=== PATIENT | male | born 1965 | race Caucasian/White ===

== ENCOUNTER 2017-01-17 11:09 | Inpatient (IN) | payer BC ==
[2017-01-17] VITALS (9 sets, daily range): BP systolic 107–128; BP diastolic 62–84; PULSE 74–84; RESP 16–18; TEMP 97.2–99; O2SAT 94–99
[~2017-01-17] VITALS: Ht 149.9 cm; Wt 74.8 kg
--- NOTE | 2017-01-17 11:09 | NUR ---
Pt report received from STAR Hamilton. [facility]. Pt opens eyes, mumbles, bilat icterus to slecra, jaundice to skin, abdomen distended and firm to touch. Scratch ennis generalized to body, no open wounds noted.
--- NOTE | 2017-01-17 11:09 | NUR ---
Placed in room 08. Placed on cardiac technician, blood pressure machine and pulse oximeter. To gown for exam. Side rails up. Report given to STAR Gibson.
--- NOTE | 2017-01-17 11:11 | NUR ---
Dr. Roman at bedside for evaluation
--- NOTE | 2017-01-17 11:25 | NUR ---
Lab at bedside, blood collected.
--- NOTE | 2017-01-17 11:35 | NUR ---
Portable CXR complete.
--- NOTE | 2017-01-17 11:45 | NUR ---
In/Out urinary catheter inserted and removed. Approx 30 mL tea colored urine to collection bag. Specimen collected and sent to lab.
[2017-01-17 11:57] LABS: BASOPHILS # (AUTO) 0.1 K/uL (0.0-0.2); BASOPHILS % (AUTO) 0.4 % (0.0-2.0); EOSINOPHILS # (AUTO) 0.1 K/uL (0.0-0.4); EOSINOPHILS % (AUTO) 0.5 % (0.0-4.0); HEMATOCRIT 34.2 % (36-54); HEMOGLOBIN 11.6 g/dL (14.0-18.0); LYMPHOCYTES # (AUTO) 1.5 K/uL (1.0-5.5); LYMPHOCYTES % (AUTO) 6.9 % (20.5-51.5); MEAN CORPUSCULAR HEMOGLOBIN 35 pg (27-31); MEAN CORPUSCULAR HGB CONC 34 % (32-36); MEAN CORPUSCULAR VOLUME 105 fL (79.0-98.0); MONOCYTES # (AUTO) 1.7 K/uL (0.0-1.0); MONOCYTES % (AUTO) 7.7 % (1.7-9.3); NEUTROPHILS # (AUTO) 18.7 K/uL (1.8-7.7); NEUTROPHILS % (AUTO) 84.5 % (40.0-70.0); PLATELET COUNT (AUTO) 228 K/uL (130-430); RED BLOOD CELL COUNT(AUTO) 3.28 MIL/uL (4.2-6.2); RED CELL DISTRIBUTION WIDTH 18.3 % (9.0-15.0); WHITE BLOOD COUNT (AUTO) 22.1 K/uL (4.8-10.8)
[2017-01-17 12:00] LABS: INR 1.4 (0.80-1.20); PROTHROMBIN TIME 15.8 SECS (9.5-12.5)
[2017-01-17 12:01] LABS: CALCIUM 8.3 mg/dL (8.4-11.0); CREATININE 0.55 mg/dL (0.55-1.30); POTASSIUM 5.1 mmol/L (3.5-5.1)
[2017-01-17 12:12] LABS: BILIRUBIN,URINE 3+ (NEGATIVE); CLARITY/URINE CLEAR (CLEAR); COLOR,URINE YELLOW (YELLOW); GLUCOSE,URINE NEGATIVE (NEGATIVE); KETONES,URINE NEGATIVE (NEGATIVE); LEUKOCYTE ESTERASE ,URINE NEGATIVE (NEGATIVE); NITRITE, URINE NEGATIVE (NEGATIVE); PROTEIN URINE NEGATIVE (NEGATIVE); UROBILINOGEN,URINE 0.2 (0.2-1.0)
[2017-01-17 12:13] LABS: ALBUMIN 1.6 g/dL (3.4-4.8); TOTAL BILIRUBIN 11.5 mg/dL (0.0-1.0)
[2017-01-17 12:18] LABS: BLOOD, URINE TRACE (NEGATIVE)
[2017-01-17] MEDS ORDERED: PENT400T2 PO (12:27)
[2017-01-17] MEDS ORDERED: PRED5SOL PO (12:27)
[2017-01-17] MEDS ORDERED: SPIR25TA4 PO (12:27)
[2017-01-17] MEDS ORDERED: ACET325T53 PO (12:27)
[2017-01-17] MEDS ORDERED: NEOM500T PO (12:27)
[2017-01-17] MEDS ORDERED: LORA-259 PO (12:27)
[2017-01-17] MEDS ORDERED: OXYC-130 PO (12:27)
[2017-01-17] MEDS ORDERED: FOLI-43 PO (12:27)
[2017-01-17] MEDS ORDERED: MULT PO (12:27)
[2017-01-17] MEDS ORDERED: LEVE750T4 PO (12:27)
[2017-01-17] MEDS ORDERED: ANT30 PO (12:27)
[2017-01-17] MEDS ORDERED: LACT10SO66 PO (12:27)
[2017-01-17] MEDS ORDERED: MAGN400O4 PO (12:27)
[2017-01-17] MEDS ORDERED: TRAZ-123 PO (12:28)
[2017-01-17] MEDS ORDERED: THIA100T13 PO (12:28)
--- NOTE | 2017-01-17 12:28 | NUR ---
Medication reconciliation completed with information provided by [facility]. Any prior medication reconciliation on file was reviewed and corrected.
[2017-01-17 12:29] LABS: BACTERIA,URINE FEW /HPF (None Seen); RBC,URINE 0-3 /HPF (0-3); WBC,URINE 0-3 /HPF (0-3)
[2017-01-17 12:30] LABS: MUCUS,URINE 1+ /LPF (None Seen)
[2017-01-17] MEDS ORDERED: PIPERACILLIN/TAZO 3.375 GM in NS 50 ML IV ONE (12:45)
[2017-01-17] MEDS ORDERED: PIPERACILLIN/TAZOBACTAM 3.375 GM/VIAL (ZOSYN) IV ONE (12:53)
--- NOTE | 2017-01-17 13:10 | NUR ---
ADMISSION NOTE Received patient from ER via gurney. Patient admitted with diagnosis of ALOC/SEPSIS. Patient is awake, alert, oriented X 1. Patient oriented to hospital room, call light, toileting, pain management and safety-teach back done.
--- NOTE | 2017-01-17 13:10 | NUR ---
Patient will be admitted to care of Dr. Mcnair. Admitted to Med/Surg unit. Will go to room 121A. Belongings list completed. Summary report printed. Bedside report given to STAR Sauer.
--- NOTE | 2017-01-17 13:27 | NUR ---
GI CONSULT CALLED TO DR SÁNCHEZ [employer] SUPERVISOR FOR DR EPPERSON, RE: HEPATITIS. SPOKE TO DANK
--- NOTE | 2017-01-17 13:28 | NUR ---
ID CONSULT CALLED TO DR CAMP, RE: HEPATITIS. SPOKE TO DANK
--- NOTE | 2017-01-17 13:35 | NUR ---
Assessment note Pt found resting in bed, ALOC x 1, lethargic, responds to light stimuli but not voice, pt verbally not responsive, vital signs measured (stable), physical assessment completed, will check chart for additional information. Safety and fall precautions in place with bed in lowest position, bed alarm on, call light within reach and pt adjacent to nurses station.
--- NOTE | 2017-01-17 13:50 | NUR ---
Pt care note Pt awoke abruptly and started grabbing/removing vital signs monitoring equipment and attempting to remove IV from wrist, then tried to grab staff. Pt began vomiting and was attended to and cleaned with new gown and linens. STAR Sauer will call physician
--- NOTE | 2017-01-17 14:20 | NUR ---
Dr. Rene Called back for consult. update given. Orders given for labs for the morning and for ultrasound of the abdomen. orders noted and carried out.
--- NOTE | 2017-01-17 14:50 | NUR ---
ATTENDING DR MIKAELA DIA CALLED RE: MED REC. SPOKE TO JOSÉ MIGUEL
--- NOTE | 2017-01-17 15:10 | NUR ---
NOTE: PATIENT IS RESTING IN BED. NO S/S OF DISTRESS OR SOB. PATIENT WAS GETTING A LITTLE AGITATED. WAS ABLE TO REORIENT AND PATIENT CALMED DOWN. WAITING MD ORDERS. CALL LIGHT IN REACH, BED IN LOWEST POSITION, AND WILL CONTINUE TO MONITOR.
[2017-01-17] MEDS ORDERED: MAGNESIUM SULFATE 50 ML IV PRN (15:30)
[2017-01-17] MEDS ORDERED: MORPHINE 2 MG/ML INJ. SYRINGE IVP PRN (15:30)
[2017-01-17] MEDS ORDERED: DOCUSATE SODIUM 100 MG CAPSULE PO PRN (15:30)
[2017-01-17] MEDS ORDERED: POTASSIUM CHLORIDE 10 MEQ TAB.PRT.SR PO PRN (15:30)
[2017-01-17] MEDS ORDERED: NEOMYCIN SULFATE 500 MG TABLET PO PRN (15:30)
[2017-01-17] MEDS ORDERED: ACETAMINOPHEN 325 MG TABLET PO PRN (15:30)
[2017-01-17] MEDS ORDERED: MAG-AL HYDROX/SIMETH 30 ML UDC PO PRN (15:30)
[2017-01-17] MEDS ORDERED: ONDANSETRON HCL 4 MG/2 ML VIAL IVP PRN (15:30)
[2017-01-17] MEDS ORDERED: ZOLPIDEM TARTRATE 5 MG TABLET PO PRN (15:30)
--- NOTE | 2017-01-17 15:30 | NUR ---
Rounding Note Pt Resting in bed, no s/s of distress or SOB, not responsive to verbal commands, responsive to light stimuli. Will continue to monitor, safety and fall precautions still in place, pt adjacent to nurses station.
--- NOTE | 2017-01-17 17:20 | NUR ---
Rounding note Pt resting in bed, response to light stimuli, no s/s of SOB or discomfort. Bed in lowest position, bed alarm, orthotic/prosthetic practitioner light within reach
[2017-01-17] MEDS: PIPERACILLIN/TAZO 3.375 GM in NS 50 ML IV SCH ×2 (18:07→23:41)
--- NOTE | 2017-01-17 18:18 | NUR ---
Family contact STAR Sauer contacted the sister to inform her of pt scheduled EGD tomorrow, sister said she will be available by phone to give consent tomorrow before procedure. She didn't know pt was here and was grateful for the updated information. Addendum: 01/17/17 at 1821 by Liliane Figueroa RN Consent is in chart
--- NOTE | 2017-01-17 18:25 | NUR ---
Closing Note Pt remains ALOC x 1 and responsive to light stimulus, no s/s of SOB, HOB elevated, bed in lowest position, bed alarm on and call light within reach, pt next to nurses station. Zosyn infusing and IV is patent and without redness or swelling. Pt to undergo EGD tomorrow, consent in chart and sister notified and will be available by phone tomorrow morning to give approval for procedure. Will give report to NOC shift nurse.
--- NOTE | 2017-01-17 19:30 | NUR ---
notes received the pt from the day nurse,raz for vs,alert x2 no complaints given.will be npo after mid night for egd.dry scabs noted to both arms.iv intact to rt wrist,no redness or swelling noted.bed alarm is location manager light within reach.pt instructed to call for the nurse if he needs to get up.safety measures in progress.will continue to monitor.
--- NOTE | 2017-01-17 20:53 | NUR ---
notes energy technician called and stated he is too busy in the er and will do the ultrasound in the am.
[2017-01-17] MEDS: LACTULOSE 20 GM/30 ML UDC PO SCH (21:12)
[2017-01-17] MEDS: levETIRAcetam 500 MG TABLET PO SCH (21:13)
[2017-01-17] MEDS: traZODone HCL 50 MG TABLET (DESYREL) PO SCH (21:13)
[2017-01-17] MEDS: RIFAXIMIN 550 MG TABLET PO SCH (21:13)
--- NOTE | 2017-01-17 21:30 | NUR ---
notes pt more awake now,medications given as ordered.call light within reach.continue to monitor.
[2017-01-17] MEDS: PANTOPRAZOLE SODIUM 40 MG/VIAL (PROTONIX) IVP SCH (22:06)
--- NOTE | 2017-01-17 23:19 | NUR ---
notes pt sleeping,call light within reach,will continue to monitor.
[2017-01-17] MEDS: MORPHINE 2 MG/ML INJ. SYRINGE IVP PRN (23:43)
--- NOTE | 2017-01-17 23:48 | NUR ---
MORPHINE GIVEN Patient c/o back pain 11/29, Morphine 2mg IVP given as order. No acute distress. Safety measure maintained. Call light within reached. Continue to monitor.
[2017-01-18 00:44] VITALS: BP 92/62; PULSE 76; RESP 18; TEMP 98.7; O2SAT 97
--- NOTE | 2017-01-18 01:36 | NUR ---
notes pt sleeping,call light within reach.continue to monitor.
--- NOTE | 2017-01-18 03:49 | NUR ---
notes pt remains asleep.call light within reach.continue to monitor.
--- NOTE | 2017-01-18 04:10 | NUR ---
notes pt incontinent of loose stool,pt cleaned and repositioned with pillow support.
[2017-01-18 04:34] VITALS: BP 110/65; PULSE 71; RESP 17; TEMP 98; O2SAT 100
[2017-01-18] MEDS: PIPERACILLIN/TAZO 3.375 GM in NS 50 ML IV SCH ×2 (05:14→14:19)
--- NOTE | 2017-01-18 06:08 | NUR ---
closing notes pt sleeping,will endorse the care to the day nurse.
[2017-01-18 06:32] LABS: BASOPHILS % (AUTO) 0.1 % (0.0-2.0); EOSINOPHILS # (AUTO) 0.1 K/uL (0.0-0.4); EOSINOPHILS % (AUTO) 0.7 % (0.0-4.0); HEMATOCRIT 27.6 % (36-54); HEMOGLOBIN 9.5 g/dL (14.0-18.0); LYMPHOCYTES # (AUTO) 1.3 K/uL (1.0-5.5); LYMPHOCYTES % (AUTO) 8.5 % (20.5-51.5); MEAN CORPUSCULAR HEMOGLOBIN 36 pg (27-31); MEAN CORPUSCULAR HGB CONC 35 % (32-36); MEAN CORPUSCULAR VOLUME 103 fL (79.0-98.0); MONOCYTES # (AUTO) 1.1 K/uL (0.0-1.0); MONOCYTES % (AUTO) 7.7 % (1.7-9.3); NEUTROPHILS # (AUTO) 12.2 K/uL (1.8-7.7); PLATELET COUNT (AUTO) 165 K/uL (130-430); RED BLOOD CELL COUNT(AUTO) 2.69 MIL/uL (4.2-6.2); RED CELL DISTRIBUTION WIDTH 17.8 % (9.0-15.0); WHITE BLOOD COUNT (AUTO) 14.8 K/uL (4.8-10.8)
[2017-01-18 06:36] LABS: INR 1.5 (0.80-1.20); PROTHROMBIN TIME 16.9 SECS (9.5-12.5)
[2017-01-18 06:40] LABS: ALBUMIN 1.3 g/dL (3.4-4.8); BILIRUBIN,DIRECT 8.2 mg/dL (0.0-0.3); CALCIUM 8.1 mg/dL (8.4-11.0); CREATININE 0.72 mg/dL (0.55-1.30); POTASSIUM 4.2 mmol/L (3.5-5.1); TOTAL BILIRUBIN 10.2 mg/dL (0.0-1.0)
[2017-01-18 08:09] VITALS: BP 95/66; PULSE 61; RESP 12; TEMP 97.4; O2SAT 96
--- NOTE | 2017-01-18 08:22 | NUR ---
OPENING NOTE RECEIVED PT AWAKE, ORIENTED TO SELF ONLY. PT NPO FOR EGD TODAY. DR. SÁNCHEZ SPOKE WITH PT'S SISTER AND CONSENT WAS OBTAINED BY GI NURSE. PT OUT OF ROOM FOR EGD AT THIS TIME.
[2017-01-18] MEDS ORDERED: fentaNYL CITRATE/PF 100 MCG/2 ML AMP ONE (08:39)
[2017-01-18] MEDS ORDERED: MIDAZOLAM HCL 5 MG/5 ML VIAL ONE (08:39)
[2017-01-18] MEDS ORDERED: SIMETHICONE 40 MG/0.6 ML ML ONE (08:53)
[2017-01-18] MEDS ORDERED: OCTREOTIDE ACETATE 1,250 MCG in NS 250 ML IV SCH (09:00)
[2017-01-18] MEDS ORDERED: OCTREOTIDE ACETATE 50 MCG/ML AMP IVP ONE (09:00)
--- NOTE | 2017-01-18 09:48 | NUR ---
Nutrition Update Tee Scale 16 noted. Pt admitted for sepsis. Diet: clear liquid BMI: 26 kg/m2 RD to follow per nutrition care standards. Addendum: 01/18/17 at [address] CORRECTION: Diet: Clear liquid, no red
[2017-01-18] MEDS: levETIRAcetam 500 MG TABLET PO SCH ×2 (10:00→21:19)
[2017-01-18] MEDS: THIAMINE HCL 100 MG TABLET PO SCH (10:01)
[2017-01-18] MEDS: SPIRONOLACTONE 25 MG TABLET (ALDACTONE) PO SCH (10:01)
[2017-01-18] MEDS: RIFAXIMIN 550 MG TABLET PO SCH ×2 (10:02→21:19)
[2017-01-18] MEDS: FOLIC ACID 1 MG TABLET PO SCH (10:02)
[2017-01-18] MEDS: LACTULOSE 20 GM/30 ML UDC PO SCH ×2 (10:03→21:20)
[2017-01-18] MEDS: PANTOPRAZOLE SODIUM 40 MG/VIAL (PROTONIX) IVP SCH ×2 (10:03→21:20)
--- NOTE | 2017-01-18 11:06 | NUR ---
ID CONSULT CALLED TO DR CAMP, RE: LEUKOCYTOSIS. SPOKE TO JOSÉ MIGUEL
[2017-01-18] MEDS: cefTRIAXone 1 GM in D5W 50 ML IV SCH (11:37)
[2017-01-18 12:07] VITALS: BP 94/60; PULSE 78; RESP 18; TEMP 99.1; O2SAT 96
[2017-01-18 17:00] VITALS: BP 95/56; PULSE 81; RESP 18; TEMP 99.8; O2SAT 98
--- NOTE | 2017-01-18 18:24 | NUR ---
CLOSING NOTE PT RESTING COMFORTABLY AT THIS TIME IN NO ACUTE DISTRESS. SANDOSTATIN INFUSING WELL INTO RT WRIST, NO S/S OF INFILTRATION NOTED. PT DENIES ANY PAIN AT THIS TIME, REPOSITIONED FOR COMFORT. NEW SL NOTED TO LT HAND FOR IV ABX, PATENT. SAFETY MEASURES IN PLACE. WILL ENDORSE TO NEXT SHIFT.
[2017-01-18 20:00] VITALS: BP 110/60; PULSE 85; RESP 18; TEMP 98.4; O2SAT 99
--- NOTE | 2017-01-18 20:00 | NUR ---
Opening Notes Patient received in bed awake and alert. A/O x 3. Patient admitted for sepsis. Vital signs are within normal limits. Patient is pale with yellowing in the eyes. Skin is intact with scabs on bilateral arms. Right hand 22 gauge IV wrapped with bandage and Left hand 22 gauge. Both IV infusing well with no sign of infection or infiltration. Patient is sensitive to the infusion but tolerating it. Lungs clear and heart sounds are normal. Call light within reach and safety precautions in place. Will continue to monitor.
--- NOTE | 2017-01-18 20:00 | NUR ---
Opening Notes Received patient lying in bed awake. Patient is non verbal and does not respond to his name. Transfered from ICU for monitoring. On GT feeding, Fibersource and is patent. Dressing is dry and clean. Right upper chest portacath with D5 NS with 20KCL infusing. No s/s of infection or infiltration. Right inner heal wound covered with dressing dry and clean. Temperature elevated at 101.3 and Pulse 125. Call light within reach and safety and seizure precaution in place. Will give medication and monitor. Addendum: 01/18/17 at 2306 by Yohannes Shrestha RN Please disregard. Wrong patient. For 119A
[2017-01-18] MEDS: LORazepam 2 MG/ML VIAL IVP PRN (20:49)
[2017-01-18] MEDS: traZODone HCL 50 MG TABLET (DESYREL) PO SCH (21:19)
--- NOTE | 2017-01-18 22:05 | NUR ---
Rounds Patient exhibiting signs of confusion. Reoriented the patient to the unit. Was given ativan to relax and tolerating it well. Clear liquid diet. IV's infusing with no issues. Call light within reach and will continue to monitor.
[2017-01-19] VITALS (7 sets, daily range): BP systolic 104–150; BP diastolic 62–77; PULSE 65–85; RESP 15–20; TEMP 97.2–99.2; O2SAT 94–100; Ht 149.9 cm; Wt 74.8 kg
--- NOTE | 2017-01-19 00:31 | NUR ---
Rounds Patient is asleep in bed. No signs of pain or respiratory distress. Call light within reach and will continue to monitor on rounds.
--- NOTE | 2017-01-19 02:08 | NUR ---
Rounds Patient is comfortably in bed sleeping. No change in patients condition from previous rounds. Call light within reach and safety precautions are being observed. Will continue to monitor.
--- NOTE | 2017-01-19 04:20 | NUR ---
Rounds Patient asleep in bed. No change in condition. Will continue to monitor.
[2017-01-19 06:50] LABS: BASOPHILS % (AUTO) 0.1 % (0.0-2.0); EOSINOPHILS # (AUTO) 0.2 K/uL (0.0-0.4); EOSINOPHILS % (AUTO) 1.2 % (0.0-4.0); HEMATOCRIT 32.1 % (36-54); HEMOGLOBIN 10.9 g/dL (14.0-18.0); LYMPHOCYTES # (AUTO) 1.5 K/uL (1.0-5.5); LYMPHOCYTES % (AUTO) 9.2 % (20.5-51.5); MEAN CORPUSCULAR HEMOGLOBIN 36 pg (27-31); MEAN CORPUSCULAR HGB CONC 34 % (32-36); MEAN CORPUSCULAR VOLUME 105 fL (79.0-98.0); MONOCYTES # (AUTO) 1.1 K/uL (0.0-1.0); MONOCYTES % (AUTO) 6.7 % (1.7-9.3); NEUTROPHILS # (AUTO) 13.7 K/uL (1.8-7.7); NEUTROPHILS % (AUTO) 82.8 % (40.0-70.0); PLATELET COUNT (AUTO) 195 K/uL (130-430); RED BLOOD CELL COUNT(AUTO) 3.07 MIL/uL (4.2-6.2); RED CELL DISTRIBUTION WIDTH 18.1 % (9.0-15.0); WHITE BLOOD COUNT (AUTO) 16.5 K/uL (4.8-10.8)
[2017-01-19 07:11] LABS: CALCIUM 8.3 mg/dL (8.4-11.0); CREATININE 0.83 mg/dL (0.55-1.30); POTASSIUM 4.4 mmol/L (3.5-5.1)
--- NOTE | 2017-01-19 07:26 | NUR ---
Closing Notes Patient is alert and awake in bed. No complaints of pain or acute respiratory distress. All needs have been met during the night. call light within reach and will endorse to the morning shift.
--- NOTE | 2017-01-19 08:00 | NUR ---
AM NOTES- PT IN BED, AWAKE, CONFUSED. DENIES ANY PAIN OR DISCOMFORT. NO DISTRESS NOTED. ON ROOM AIR. DENIES SHORTNESS OF BREATH. INCONTINENT OF BOWEL AND BLADDER. SANDOSTATIN IV INFUSING WELL. SAFETY PRECAUTION OBSERVED. ON BED ALARM. CALL LIGHT IN REACH. WILL MONITOR.
--- NOTE | 2017-01-19 08:30 | NUR ---
CONSENT- TELEPHONE CONSENT SIGNED BY PATIENT SISTER (ULCIEN GUIDO).
[2017-01-19] MEDS: cefTRIAXone 1 GM in D5W 50 ML IV SCH (08:52)
[2017-01-19] MEDS: LACTULOSE 20 GM/30 ML UDC PO SCH ×2 (08:53→21:15)
[2017-01-19] MEDS: PANTOPRAZOLE SODIUM 40 MG/VIAL (PROTONIX) IVP SCH ×2 (08:53→21:15)
[2017-01-19] MEDS: levETIRAcetam 500 MG TABLET PO SCH ×2 (08:53→21:19)
[2017-01-19] MEDS: RIFAXIMIN 550 MG TABLET PO SCH ×2 (08:54→21:16)
[2017-01-19] MEDS: FOLIC ACID 1 MG TABLET PO SCH (08:55)
[2017-01-19] MEDS: THIAMINE HCL 100 MG TABLET PO SCH (08:55)
[2017-01-19] MEDS: SPIRONOLACTONE 25 MG TABLET (ALDACTONE) PO SCH (08:55)
--- NOTE | 2017-01-19 10:18 | NUR ---
rounds- Pt. sleeping at this time. paracentesis done at bedside with 1.5 liters out. pt tolerated the procedure well.
--- NOTE | 2017-01-19 11:58 | NUR ---
notes- has incontinent of urine and stool. cleaned and repositioned with the stonemason supervisor. excoriation noted on the buttocks. cream applied.
[2017-01-19 12:34] LABS: BF APPEARANCE UNSPUN HAZY (CLEAR); BODY FLUID SOURCE/ TYPE PARACENTESIS; SOURCE/TYPE ,BODY FLUID PARACENTESIS
[2017-01-19 12:35] LABS: APPEARANCE,SPUN,BODY FLUID CLEAR (CLEAR); BODY FLUID COLOR YELLOW (LT YELLOW); BODY FLUID TOTAL VOLUME 1500 mL; EOSINOPHIL, BODY FLUID 2 %; LYMPHOCYTES, BODY FLUID 19 %; MONOCYTES,BODY FLUID 71 %; NEUTROPHIL, BODY FLUID 8 %; RBC, BODY FLUID 37 /uL; WBC, BODY FLUID 82 /uL
[2017-01-19 12:36] LABS: BODY FLUID OTHER CELLS SN %
--- NOTE | 2017-01-19 13:51 | NUR ---
Dietitian Recommendations * Recommend continuing clear liquid, no red diet per MD * Consider advance diet if/when medically appropriate (2 gm Na diet) LP, RD Please refer to Nutrition Assessment for details.
--- NOTE | 2017-01-19 14:27 | NUR ---
notes- in bed awake, has period of confusion. family at bedside. patient and family okayed to give flu shot has incontinent of urine. cleaned and repositioned. no distress noted.
[2017-01-19] MEDS ORDERED: FLU VACC QS 2017-18(36MOS+)/PF 0.5 ML/SYR SYRINGE I.M. PRN (14:45)
--- NOTE | 2017-01-19 16:06 | NUR ---
notes- sleeping, family at bedside. no distress noted.
[2017-01-19 16:08] LABS: BODY FLUID GLUCOSE 82 mg/dL
[2017-01-19 17:57] LABS: BODY FLUID TOTAL PROTEIN 0.4 g/dL
--- NOTE | 2017-01-19 18:28 | NUR ---
closing notes Pt asleep, breathing even and unlabored. no distress noted.
--- NOTE | 2017-01-19 19:45 | NUR ---
Opening notes. Received patient in bed, report from morning nurse; alert/confused at times,breathing spontaneously, in RA, incontinent b/b,scd to BLE in place,both legs with +2 edema,Rt abd with brown drsg in place, no drainage noted; Hl to Lt hand, intact/patent;no c/o pain at this time; call light in reach,bed in low position, bed alarm on.
[2017-01-19] MEDS: traZODone HCL 50 MG TABLET (DESYREL) PO SCH (21:21)
--- NOTE | 2017-01-19 22:00 | NUR ---
Meds. Routine meds given as ordered, tolerated well,quinten given,now resting in bed with no distress.
--- NOTE | 2017-01-20 00:30 | NUR ---
Round. Sleeping in bed at this time,with no distress; call light in reach, bed in low position, bed alarm on.
--- NOTE | 2017-01-20 02:30 | NUR ---
Round. Sleeping in bed at this time, with HOB elevated,no distress noted,call light in reach,bed in low position, bed alarm on.
[2017-01-20 04:05] VITALS: BP 104/59; PULSE 68; RESP 20; TEMP 97.5; O2SAT 97
[2017-01-20 06:41] LABS: BASOPHILS # (AUTO) 0.2 K/uL (0.0-0.2); BASOPHILS % (AUTO) 1.1 % (0.0-2.0); EOSINOPHILS # (AUTO) 0.3 K/uL (0.0-0.4); EOSINOPHILS % (AUTO) 1.9 % (0.0-4.0); HEMATOCRIT 32.3 % (36-54); HEMOGLOBIN 10.7 g/dL (14.0-18.0); LYMPHOCYTES # (AUTO) 0.6 K/uL (1.0-5.5); LYMPHOCYTES % (AUTO) 4.2 % (20.5-51.5); MEAN CORPUSCULAR HEMOGLOBIN 35 pg (27-31); MEAN CORPUSCULAR HGB CONC 33 % (32-36); MEAN CORPUSCULAR VOLUME 107 fL (79.0-98.0); MONOCYTES # (AUTO) 0.8 K/uL (0.0-1.0); MONOCYTES % (AUTO) 5.3 % (1.7-9.3); NEUTROPHILS # (AUTO) 12.4 K/uL (1.8-7.7); NEUTROPHILS % (AUTO) 87.5 % (40.0-70.0); PLATELET COUNT (AUTO) 171 K/uL (130-430); RED BLOOD CELL COUNT(AUTO) 3.03 MIL/uL (4.2-6.2); RED CELL DISTRIBUTION WIDTH 17.1 % (9.0-15.0); WHITE BLOOD COUNT (AUTO) 14.3 K/uL (4.8-10.8)
--- NOTE | 2017-01-20 07:00 | NUR ---
Closing notes. Condition stable, slept most of the night, tolerated meds well,no fever during the shift,will continue with current plan of care,now,resting in bed, with call light in reach,bed in low position,bed alarm on.
[2017-01-20 07:17] LABS: CALCIUM 8.1 mg/dL (8.4-11.0); CREATININE 0.9 mg/dL (0.55-1.30); POTASSIUM 3.7 mmol/L (3.5-5.1)
[2017-01-20] MEDS ORDERED: FLU VACC QS 2017-18(36MOS+)/PF 0.5 ML/SYR SYRINGE I.M. PRN (07:45)
[2017-01-20 08:00] VITALS: BP 97/58; PULSE 66; RESP 18; TEMP 98.1; O2SAT 98
--- NOTE | 2017-01-20 08:00 | NUR ---
AM NOTES- IN BED AWAKE, ALERT AND VERY FORGETFULL. DENIES ANY PAIN OR DISCOMFORT. IV. ON ROOM AIR. DENIES ANY SHORTNESS OF BREATH. HAS INCONTINCE OF STOOL AND URINE. CLEANED AND REPOSITIONED. EXCORIATION NOTED. ON THE BUTTOM. CREAM APPLIED. WILL MONITOR.
[2017-01-20] MEDS: cefTRIAXone 1 GM in D5W 50 ML IV SCH (09:44)
[2017-01-20] MEDS: LACTULOSE 20 GM/30 ML UDC PO SCH ×2 (09:50→21:44)
[2017-01-20] MEDS: RIFAXIMIN 550 MG TABLET PO SCH ×2 (09:50→21:45)
[2017-01-20] MEDS: PANTOPRAZOLE SODIUM 40 MG/VIAL (PROTONIX) IVP SCH ×2 (09:50→21:44)
[2017-01-20] MEDS: THIAMINE HCL 100 MG TABLET PO SCH (09:50)
[2017-01-20] MEDS: FOLIC ACID 1 MG TABLET PO SCH (09:50)
[2017-01-20] MEDS: SPIRONOLACTONE 25 MG TABLET (ALDACTONE) PO SCH (09:51)
[2017-01-20] MEDS: levETIRAcetam 500 MG TABLET PO SCH ×2 (09:51→21:45)
--- NOTE | 2017-01-20 11:25 | NUR ---
notes- in bed awake, no signs and symptoms of pain or discomfort. no acute distress noted. turned and repositioned. has period of confusion. keeps asking for blanket
--- NOTE | 2017-01-20 12:26 | NUR ---
NOTES- SEEN BY DR. HANNAH AT BEDSIDE. PATIENT'S IN BED, NO DISTRESS NOTED. PT'S WANTS TO EAT. PAGED DR. SÁNCHEZ.
[2017-01-20 12:50] VITALS: BP 105/64; PULSE 80; RESP 20; TEMP 97.8; O2SAT 100
--- NOTE | 2017-01-20 15:12 | NUR ---
notes- in bed, with eyes closed. breathing even and unlabored. no distress noted.
[2017-01-20 16:38] VITALS: BP 115/71; PULSE 75; RESP 20; TEMP 98.3; O2SAT 99
--- NOTE | 2017-01-20 18:45 | NUR ---
notes- Spoke to Dr. Rene and ordered soft diet for the patients. pt in bed, no distress noted. no signs of bleeding through out shift. All needs meet. will endorse
[2017-01-20 20:00] VITALS: BP 113/66; PULSE 71; RESP 20; TEMP 98; O2SAT 99
--- NOTE | 2017-01-20 20:00 | NUR ---
Opening notes. Received patient in bed,report from morning nurse,;alert/confused at times, incontinent b/b,on bed rest,scd to BLE in place,on air mattress bed, denies any at this time; call light in reach, bed in low position,bed alarm on.
[2017-01-20] MEDS: traZODone HCL 50 MG TABLET (DESYREL) PO SCH (21:45)
[2017-01-20 23:34] VITALS: BP 99/62; PULSE 75; RESP 18; TEMP 97.8; O2SAT 97
[2017-01-21 03:34] VITALS: BP 97/55; PULSE 58; RESP 18; TEMP 97.4; O2SAT 97
[2017-01-21 06:49] LABS: CALCIUM 7.6 mg/dL (8.4-11.0); CREATININE 0.57 mg/dL (0.55-1.30)
--- NOTE | 2017-01-21 06:51 | NUR ---
Closing notes. Condition stable, slept all night, tolerated meds well,no fever during the shift,no falls occurred,will continue with current plan of care,now, resting in bed, with no distress; call light in reach, bed in low position, bed alarm on.
[2017-01-21 07:02] LABS: BASOPHILS % (AUTO) 0.1 % (0.0-2.0); EOSINOPHILS # (AUTO) 0.4 K/uL (0.0-0.4); EOSINOPHILS % (AUTO) 3.5 % (0.0-4.0); HEMATOCRIT 28.8 % (36-54); HEMOGLOBIN 9.9 g/dL (14.0-18.0); LYMPHOCYTES # (AUTO) 0.8 K/uL (1.0-5.5); LYMPHOCYTES % (AUTO) 7.2 % (20.5-51.5); MEAN CORPUSCULAR HEMOGLOBIN 36 pg (27-31); MEAN CORPUSCULAR HGB CONC 35 % (32-36); MEAN CORPUSCULAR VOLUME 104 fL (79.0-98.0); MONOCYTES # (AUTO) 0.5 K/uL (0.0-1.0); MONOCYTES % (AUTO) 4.3 % (1.7-9.3); NEUTROPHILS # (AUTO) 9.7 K/uL (1.8-7.7); NEUTROPHILS % (AUTO) 84.9 % (40.0-70.0); PLATELET COUNT (AUTO) 140 K/uL (130-430); RED BLOOD CELL COUNT(AUTO) 2.77 MIL/uL (4.2-6.2); RED CELL DISTRIBUTION WIDTH 17.5 % (9.0-15.0); WHITE BLOOD COUNT (AUTO) 11.4 K/uL (4.8-10.8)
[2017-01-21 08:00] VITALS: BP 104/71; PULSE 69; RESP 18; TEMP 97.7; O2SAT 100
--- NOTE | 2017-01-21 08:00 | NUR ---
initial notes rec patient asleep but arousable to stimuli. awake with periods of confusion but resting comfortably for now. resp easy and unlabored. ivl intact, no infiltration noted. no acute distress noted.bed closed the nurses station to prevent from falling. bed in low position and side rails up and locked. call light within reached and knows when to call f or assistance. will continue to monitor patient.
[2017-01-21] MEDS ORDERED: POTASSIUM CHLORIDE 20 MEQ TAB.PRT.SR PO ONE (09:30)
--- NOTE | 2017-01-21 09:45 | NUR ---
md seen by dr peraza and with orders. with periods of confusion.
[2017-01-21] MEDS: PANTOPRAZOLE SODIUM 40 MG/VIAL (PROTONIX) IVP SCH (09:49)
[2017-01-21] MEDS: LACTULOSE 20 GM/30 ML UDC PO SCH (09:52)
[2017-01-21] MEDS: SPIRONOLACTONE 25 MG TABLET (ALDACTONE) PO SCH (09:52)
[2017-01-21] MEDS: THIAMINE HCL 100 MG TABLET PO SCH (09:52)
[2017-01-21] MEDS: levETIRAcetam 500 MG TABLET PO SCH (09:53)
[2017-01-21] MEDS: FOLIC ACID 1 MG TABLET PO SCH (09:53)
[2017-01-21] MEDS: RIFAXIMIN 550 MG TABLET PO SCH (09:54)
--- NOTE | 2017-01-21 10:23 | NUR ---
DC PLANNING Order to dc back to snf if K+ >3.2. Pt sleeping, per pt's nurse Nolvia, pt cont confused. Called & spoke w pt's sister Kelley Nichols, ph [phone], informed of plan & agreeable. Wants pt to go back to [facility]. Nolvia aware.
[2017-01-21] MEDS: cefTRIAXone 1 GM in D5W 50 ML IV SCH (10:30)
--- NOTE | 2017-01-21 10:46 | NUR ---
DISCHARGE PLANNING DC order back to SNF. Faxed SNF referral to [phone]. Will follow up. Addendum: 01/21/17 at 1227 by Jennifer LOCKE patient assigned to room 118A RN to report [phone] bed available anytime. Contracted ambulance [facility] . Placed transportation packet in nurses station. Addendum: 01/21/17 at 1440 by Jennifer Richardson DP spoke with Nicole in Admitting pending insurance auth. Nicole stated insurance CM requested for updated clinicals to be faxed for SNF auth to be given. Current UR review can be faxed to [phone]. Addendum: 01/21/17 at 1610 by Jennifer LOCKE Spoke with Nicole in admitting who stated insurance CM received faxed UR and currently pending to be reviewed for insurance auth. Confirmed [id number] UR was faxed to and its correct. Gia at [facility] advised to follow up in AM for insurance auth for patient discharge.
--- NOTE | 2017-01-21 12:00 | NUR ---
rounds eating lunch. no c/o pain at this but very confused. side rails up and locked and monitored closely from the nursing station.
[2017-01-21 12:34] VITALS: BP 148/66; PULSE 88; RESP 16; TEMP 98.3; O2SAT 98
--- NOTE | 2017-01-21 14:00 | NUR ---
rounds sleeping when rounds made otherwise confused and will be calling out names when awake. bed in low position and side rails up and locked.
[2017-01-21 14:47] LABS: CALCIUM 7.7 mg/dL (8.4-11.0); CREATININE 0.65 mg/dL (0.55-1.30); POTASSIUM 4.3 mmol/L (3.5-5.1)
--- NOTE | 2017-01-21 16:00 | NUR ---
rounds hold discharged pending insurance approval. sleeps at intervals and and no acute distress noted.
[2017-01-21 17:42] VITALS: BP 126/84; PULSE 84; RESP 17; TEMP 97.3; O2SAT 99
--- NOTE | 2017-01-21 18:30 | NUR ---
closing notes pt with periods of confusion still but close to the nurses station to prevent fall. bed in low positon and side rails up and locked. no acute distress noted.
--- NOTE | 2017-01-21 19:30 | NUR ---
INITIAL NOTE Received report from lucy. Pt awake and alert, resting comfortably in no distress. Oriented pt to room and use of call mcgrath. Pt with periods of confusion. Fall precautions in place. Bed in lowest position and call mcgrath within reach. Will continue to monitor.
[2017-01-21 20:00] VITALS: BP 122/61; PULSE 80; RESP 18; TEMP 98.5; O2SAT 100
--- NOTE | 2017-01-21 21:15 | NUR ---
ROUNDS Vital signs stable. Pt with eyes closed in no distress. Fall precautions on place. Will continue to monitor.
--- NOTE | 2017-01-21 23:10 | NUR ---
ROUNDS Pt sleeping, easily arousable in no distress. Speaking in repetitive words at times. Reoriented pt to time and place. Routine medications administered crushed in pudding. Pt took medications well. Swallowed safely. Provided perineal care, replaced draw sheet, chuxs and gown. Repositioned for comfort. Will continue to monitor.
[2017-01-22] MEDS: PANTOPRAZOLE SODIUM 40 MG/VIAL (PROTONIX) IVP SCH ×3 (00:02→21:05)
[2017-01-22] MEDS: LACTULOSE 20 GM/30 ML UDC PO SCH ×3 (00:02→21:05)
[2017-01-22 00:03] VITALS: BP 104/57; PULSE 83; RESP 20; TEMP 98.4; O2SAT 99
[2017-01-22] MEDS: traZODone HCL 50 MG TABLET (DESYREL) PO SCH ×2 (00:03→21:05)
[2017-01-22] MEDS: RIFAXIMIN 550 MG TABLET PO SCH ×3 (00:03→21:05)
[2017-01-22] MEDS: levETIRAcetam 500 MG TABLET PO SCH ×3 (00:03→21:05)
--- NOTE | 2017-01-22 01:20 | NUR ---
ROUNDS Pt sleeping soundly, breathing easy and unlabored in no distress. Will continue to monitor.
--- NOTE | 2017-01-22 03:50 | NUR ---
ROUNDS Pt sleeping in no distress. Breathing easy and unlabored. Easily arousable. Pt incontinent of large watery bowel movement. Assisted MANAGER LVN in changing pts sheets, chuxs and gown and providing perineal care. Repositioned pt for comfort. Fall precautions in place. Will continue to monitor.
[2017-01-22 04:53] VITALS: BP 108/65; PULSE 64; RESP 18; TEMP 98.4; O2SAT 95
--- NOTE | 2017-01-22 05:42 | NUR ---
ROUNDS Pt sleeping soundly in no distress. Will continue to monitor.
[2017-01-22 06:33] LABS: EOSINOPHILS # (AUTO) 0.3 K/uL (0.0-0.4); EOSINOPHILS % (AUTO) 2.3 % (0.0-4.0); HEMATOCRIT 32.8 % (36-54); HEMOGLOBIN 11.1 g/dL (14.0-18.0); LYMPHOCYTES # (AUTO) 0.7 K/uL (1.0-5.5); LYMPHOCYTES % (AUTO) 5.7 % (20.5-51.5); MEAN CORPUSCULAR HEMOGLOBIN 36 pg (27-31); MEAN CORPUSCULAR HGB CONC 34 % (32-36); MEAN CORPUSCULAR VOLUME 106 fL (79.0-98.0); MONOCYTES # (AUTO) 0.7 K/uL (0.0-1.0); MONOCYTES % (AUTO) 5.6 % (1.7-9.3); NEUTROPHILS # (AUTO) 10.3 K/uL (1.8-7.7); NEUTROPHILS % (AUTO) 86.4 % (40.0-70.0); PLATELET COUNT (AUTO) 141 K/uL (130-430); RED BLOOD CELL COUNT(AUTO) 3.09 MIL/uL (4.2-6.2); RED CELL DISTRIBUTION WIDTH 17.4 % (9.0-15.0)
[2017-01-22 06:41] LABS: CALCIUM 7.9 mg/dL (8.4-11.0); CREATININE 0.68 mg/dL (0.55-1.30); POTASSIUM 3.7 mmol/L (3.5-5.1)
--- NOTE | 2017-01-22 06:51 | NUR ---
CLOSING NOTE Pt sleeping soundly in no distress. Fall precautions in place. Will continue to monitor and endorse care to dayshift.
--- NOTE | 2017-01-22 07:23 | NUR ---
Initial notes: Patient on bed sleeping. Stable. I.v. access in placed. Safety measures in placed. Call light within reach. Report received at bedside.
[2017-01-22 07:59] VITALS: BP 96/55; PULSE 59; RESP 16; TEMP 97.7; O2SAT 98
[2017-01-22] MEDS: THIAMINE HCL 100 MG TABLET PO SCH (09:00)
[2017-01-22] MEDS: FOLIC ACID 1 MG TABLET PO SCH (09:04)
[2017-01-22] MEDS: SPIRONOLACTONE 25 MG TABLET (ALDACTONE) PO SCH (09:04)
[2017-01-22] MEDS: cefTRIAXone 1 GM in D5W 50 ML IV SCH (09:17)
--- NOTE | 2017-01-22 09:49 | NUR ---
DISCHARGE PLANNING Called insurance CM Gia at [facility] who stated fax UR review has not been received. Gia did confirm fax is in que pending to be reviewed. Once she is able to review fax UR review she will return call to [facility] with their decision for auth. Bed assignment pending insurance auth. DCP will follow up at later time today. Addendum: 01/22/17 at 1602 by Jennifer LOCKE Returned call to Gia at [facility] [phone] Faxed requested PT notes to [phone] Gia stated at this time medical MD denied [facility] auth. Gia will have Medical MD review PT notes once fax has been received and advised MD to MD to [phone] Ref#[id number]. CORI made aware and will notify .
--- NOTE | 2017-01-22 09:51 | NUR ---
rounds: patient compliant in medication crushed with apple sauce. He verbalized "he's hungry" he opens his mouth while eating, eyes remains closed.
[2017-01-22 12:00] VITALS: BP 120/78; PULSE 78; RESP 20; TEMP 98.1; O2SAT 93
--- NOTE | 2017-01-22 12:03 | NUR ---
DC PLANNING Received call from Gia @ , ph [phone], fax [phone], updated on pt status, states pt not meeting SNF criteria. Informed will call for PT eval. States once have PT eval to fax to her to see if can qualify for SNF. Called Dr Mcnair & jake, gave ph order for PT eval, updated Jennifer harding manufacturing planner.
--- NOTE | 2017-01-22 12:59 | NUR ---
rounds: patient sleeping. no distress noted.
--- NOTE | 2017-01-22 13:48 | NUR ---
rounds: pt on bed sleeping. no distress noted.
[2017-01-22] MEDS: MORPHINE 2 MG/ML INJ. SYRINGE IVP PRN (15:41)
--- NOTE | 2017-01-22 16:21 | NUR ---
rounds: pt had a large BM. Cleaned, changed and repositioned the pt.
[2017-01-22 17:37] VITALS: BP 117/75; PULSE 74; RESP 20; TEMP 97.8; O2SAT 93
--- NOTE | 2017-01-22 18:47 | NUR ---
closing notes: patient on bed sleeping. Stable. Needs attended. Safety measures in placed. Call light within reach. Report will be given to restaurant shift leader.
--- NOTE | 2017-01-22 19:30 | NUR ---
INITIAL NOTE Received report from dayshift nurse. Pt sleeping soundly in no distress. Easily arousable. Full dinner tray at bedside. Fall precautions in place and pt near nurses station. Will continue to monitor.
--- NOTE | 2017-01-22 19:45 | NUR ---
SPOKE TO PTS FAMILY Pts sister called inquiring about pts status and if he'll be discharged tomorrow. Verified sister is listed as pts next of kin. Informed sister as of now no discharge orders however encouraged to call in AM to find out if pt will be discharged. Verbalized understanding.
[2017-01-22 20:00] VITALS: BP 126/83; PULSE 70; RESP 18; TEMP 97.6; O2SAT 100
--- NOTE | 2017-01-22 20:40 | NUR ---
ROUNDS/PT ATTEMPTING TO GET OOB Observed pt attempting to get oob with legs over side rails. Pt combative swinging arms and legs. Encouraged pt to stay in bed as he may fall and pt continued angry and confusing nurse for a family member. Called security to assist with pt. Pt able to calm down however insisted he wanted to go to the bathroom. Pt was assisted to bathroom by 2 staff and security. Encouraged pt to return to bed at which point ativan was given and pt was able to calm down. Pt was fed his dinner and ate entire tray. Routine medications given. Side rails up x [address] alarm [address] will continue to monitor.
[2017-01-22] MEDS: LORazepam 2 MG/ML VIAL IVP PRN (20:56)
--- NOTE | 2017-01-22 21:10 | NUR ---
ROUNDS Pt awake staring at television in no distress. Pt now calm. Ativan effective. Will continue to monitor pt.
--- NOTE | 2017-01-22 22:10 | NUR ---
ROUNDS Pt sleeping soundly easily arousable in no distress. Repositioned pt for comfort. Will continue to monitor.
[2017-01-23 00:30] VITALS: PULSE 81; RESP 16; TEMP 97.3; O2SAT 99
--- NOTE | 2017-01-23 00:40 | NUR ---
ROUNDS Pt with large BM in chuxs. Pt continues calm and cooperative. With IN STORE MARKETING ASSOCIATE's help cleaned pt, provided perineal care, applied Z Amy to coccyx, buttocks and groin, donned new gown. Repositioned pt for comfort. Side rails up x4 and bed alarm in place. Will continue to monitor.
--- NOTE | 2017-01-23 02:45 | NUR ---
ROUNDS Pt sleeping, easily arousable in no distress. Soiled with large BM and urine. Changed pts linens, chuxs, and provided perineal care. Applied barrier cream and repositioned for comfort. Will continue to monitor.
--- NOTE | 2017-01-23 04:45 | NUR ---
ROUNDS Pt sleeping soundly in no distress. Easily arousable. Repositioned for comfort. will continue to monitor.
[2017-01-23 04:59] VITALS: BP 166/74; PULSE 68; RESP 17; TEMP 97.4; O2SAT 98
--- NOTE | 2017-01-23 06:42 | NUR ---
CLOSING NOTE Pt calm, resting comfortably in no distress. Safety shift goals met. Will continue to monitor pt and endorse care to dayshift.
[2017-01-23 07:08] LABS: BASOPHILS % (AUTO) 0.1 % (0.0-2.0); EOSINOPHILS # (AUTO) 0.5 K/uL (0.0-0.4); EOSINOPHILS % (AUTO) 4.2 % (0.0-4.0); HEMATOCRIT 33.4 % (36-54); HEMOGLOBIN 11.2 g/dL (14.0-18.0); LYMPHOCYTES # (AUTO) 0.9 K/uL (1.0-5.5); LYMPHOCYTES % (AUTO) 7.8 % (20.5-51.5); MEAN CORPUSCULAR HEMOGLOBIN 36 pg (27-31); MEAN CORPUSCULAR HGB CONC 34 % (32-36); MEAN CORPUSCULAR VOLUME 106 fL (79.0-98.0); MONOCYTES # (AUTO) 0.8 K/uL (0.0-1.0); MONOCYTES % (AUTO) 6.9 % (1.7-9.3); NEUTROPHILS # (AUTO) 9.1 K/uL (1.8-7.7); PLATELET COUNT (AUTO) 132 K/uL (130-430); RED BLOOD CELL COUNT(AUTO) 3.14 MIL/uL (4.2-6.2); RED CELL DISTRIBUTION WIDTH 17.8 % (9.0-15.0); WHITE BLOOD COUNT (AUTO) 11.3 K/uL (4.8-10.8)
[2017-01-23 07:13] LABS: ALBUMIN 1.3 g/dL (3.4-4.8); BILIRUBIN,DIRECT 7.9 mg/dL (0.0-0.3); CALCIUM 8.1 mg/dL (8.4-11.0); CREATININE 0.66 mg/dL (0.55-1.30); POTASSIUM 3.8 mmol/L (3.5-5.1); TOTAL BILIRUBIN 9.2 mg/dL (0.0-1.0)
--- NOTE | 2017-01-23 07:20 | NUR ---
Initial notes: Patient on bed awake, alert and oriented x 2. I.V. access patent. SCD in placed. Discussed plan of care. Safety measures in placed. Call light within reach. Report received from manufacturing supervisor 2nd shift.
[2017-01-23 08:00] VITALS: BP 108/73; PULSE 79; RESP 14; TEMP 98.1; O2SAT 100
[2017-01-23] MEDS ORDERED: SPIRONOLACTONE 25 MG TABLET (ALDACTONE) PO SCH (09:00)
[2017-01-23] MEDS: levETIRAcetam 500 MG TABLET PO SCH ×2 (09:06→20:53)
[2017-01-23] MEDS: RIFAXIMIN 550 MG TABLET PO SCH ×2 (09:06→20:53)
[2017-01-23] MEDS: FOLIC ACID 1 MG TABLET PO SCH (09:07)
[2017-01-23] MEDS: PANTOPRAZOLE SODIUM 40 MG/VIAL (PROTONIX) IVP SCH ×2 (09:08→22:16)
[2017-01-23] MEDS: THIAMINE HCL 100 MG TABLET PO SCH (09:08)
[2017-01-23] MEDS: MORPHINE 2 MG/ML INJ. SYRINGE IVP PRN ×2 (09:09→16:06)
--- NOTE | 2017-01-23 09:19 | NUR ---
rounds: patient awake and alert. Eating by himself.
[2017-01-23] MEDS: LACTULOSE 20 GM/30 ML UDC PO SCH ×2 (09:28→20:54)
--- NOTE | 2017-01-23 10:07 | NUR ---
DISCHARGE PLANNING Still pending insurance auth for bed assignment. Called [facility] SNF will follow up and return DCP call with decision.
--- NOTE | 2017-01-23 10:15 | NUR ---
Discharge Planning Received call from Dr Mcnair who states that he has tried multiple times to contact Krzysztof Velásquez physician for Peer to Peer interview. He asked that I intervene to see if there is an alternate number or way to get a hold of the Krzysztof Velásquez MD. I called CORI Nielsen @ [facility], , and she stated that he just needs to continue trying the Krzysztof Velásquez Physician Advisor line, , she said there is no other number and that is their process. I asked Gia if she received P.T. notes yesterday afternoon and she stated that she has not but there is a 24 hr delay in receiving clinical information via fax and she expects she will receive it some time today. Once received she will enter that information for her MD advisor to evaluate. Addendum: 01/23/17 at 1032 by Sasha Patterson RN Message sent to Dr Mcnair explaining that according to [facility], SNF placement has been denied d/t lack of medical necessity per [facility]. Addendum: 01/23/17 at 1553 by Rebecca Salazar RN >> Per dr. Mcnair, he spoke with [facility] Physician Advisor and received a denied discharge to [facility] and that will need another PT report for [facility]. made aware that pt. walks 40 feet FWW, 2PA min/mod assist. -- CM waits for further dc instruction when he call back.
[2017-01-23] MEDS: cefTRIAXone 1 GM in D5W 50 ML IV SCH (10:56)
--- NOTE | 2017-01-23 11:02 | NUR ---
rounds: patient sleeping. no distress noted.
[2017-01-23 12:00] VITALS: BP_SYST 124; BP_SYST 134; BP_DIAS 77; BP_DIAS 78; PULSE 82; PULSE 89; RESP 18; RESP 20; TEMP 97.6; TEMP 97.9; O2SAT 93; O2SAT 99
--- NOTE | 2017-01-23 12:45 | NUR ---
PHYSICAL THERAPY CO-SIGN The Physical Therapy Progress Notes documented by Procedure Analyst have been reviewed. Reviewed/Co-Signed by: Yessenia Park, PT Documentation Done by: Kt Hall PTA I concur with the documentation of this FRENCH FOLDER. Patient made good progress with increased gait distance made today. Plan: continue PT as per plan of care if he remains in this hospital. Addendum: 01/23/17 at 1345 by Yessenia Park PT Amended: Links added.
--- NOTE | 2017-01-23 16:10 | NUR ---
no i.v. access: pt i.v. accidentally came out. tried to re-insert but unsuccessful. will try again.
[2017-01-23] MEDS: FUROSEMIDE 20 MG TABLET PO SCH (18:29)
--- NOTE | 2017-01-23 18:35 | NUR ---
Communication to family: Spoke with Marleny Ibarra, sister of pt. informed her of pt's health condition and pt waiting for approval from insurance of the transfer back to [facility]. She verbalized understanding and thankful for the update.
[2017-01-23] MEDS ORDERED: FUROSEMIDE 20 MG TABLET ONE (18:37)
--- NOTE | 2017-01-23 18:54 | NUR ---
Closing notes: patient on bed resting. Stable. Needs attended. Safety measures in placed. Call light within reach. Report will be given to scene shifter.
--- NOTE | 2017-01-23 19:35 | NUR ---
OPENING NOTES Patient endorsed by am nurse. Report received. Patient confused. Bed alarm on and at lowest position. No sign of distress noted. Instructed patient to use call light for needs. Will continue to monitor.
[2017-01-23 20:00] VITALS: BP 120/77; PULSE 89; RESP 18; TEMP 97.5; O2SAT 100
[2017-01-23] MEDS: PROPRANOLOL HCL 10 MG TABLET (INDERAL) PO SCH (21:00)
[2017-01-23] MEDS: traZODone HCL 50 MG TABLET (DESYREL) PO SCH (21:04)
--- NOTE | 2017-01-23 22:10 | NUR ---
NEW IV INSERTED New IV site on right AC 22g. Saline locked. Flushing well and blood return noted.
[2017-01-24] VITALS (8 sets, daily range): BP systolic 80–120; BP diastolic 55–75; PULSE 54–85; RESP 16–20; TEMP 96.8–98.6; O2SAT 95–100
[2017-01-24] MEDS: MORPHINE 2 MG/ML INJ. SYRINGE IVP PRN (00:04)
--- NOTE | 2017-01-24 02:13 | NUR ---
RN ROUNDS Patient is awake, with no c/o pain or discomfort at this time. Safety and fall precautions in place. Room near nurses station. Bed alarm on. Will continue to monitor.
--- NOTE | 2017-01-24 06:15 | NUR ---
CLOSING NOTES Patient lying in bed with eyes closed. Rise and Fall of chest noted. Safety measures in placed. All needs met.Call light within reach. Report will be given to am shift nurse.
[2017-01-24 06:42] LABS: CALCIUM 8.1 mg/dL (8.4-11.0); CREATININE 0.68 mg/dL (0.55-1.30); POTASSIUM 3.8 mmol/L (3.5-5.1)
--- NOTE | 2017-01-24 08:00 | NUR ---
Opening Note Report received from NOC shift RN. Patient is resting in bed. Seizure and fall precautions are in place. IV is on the RFA 22g, saline locked. Patient appears to be mumbling and as periods of hallucinations. Bed alarm is in place and is visible form the nurses station. Will continue to monitor.
[2017-01-24] MEDS: PROPRANOLOL HCL 10 MG TABLET (INDERAL) PO SCH ×3 (09:00→20:44)
[2017-01-24] MEDS: SPIRONOLACTONE 25 MG TABLET (ALDACTONE) PO SCH ×2 (09:00→09:43)
[2017-01-24] MEDS: FUROSEMIDE 20 MG TABLET PO SCH ×2 (09:00→09:44)
[2017-01-24] MEDS: PANTOPRAZOLE SODIUM 40 MG/VIAL (PROTONIX) IVP SCH ×2 (09:42→20:52)
[2017-01-24] MEDS: THIAMINE HCL 100 MG TABLET PO SCH (09:42)
[2017-01-24] MEDS: levETIRAcetam 500 MG TABLET PO SCH ×2 (09:43→20:53)
[2017-01-24] MEDS: FOLIC ACID 1 MG TABLET PO SCH (09:44)
[2017-01-24] MEDS: LACTULOSE 20 GM/30 ML UDC PO SCH ×2 (09:44→20:53)
[2017-01-24] MEDS: cefTRIAXone 1 GM in D5W 50 ML IV SCH (09:45)
--- NOTE | 2017-01-24 10:25 | NUR ---
Rounds Patient is sleeping in bed. Call light is within reach. Will continue to monitor.
--- NOTE | 2017-01-24 11:24 | NUR ---
Discharge Planning Per conversation with Dr Mcnair yesterday, he discussed case with physician advisor at [facility] who stated that after reading our PT notes there was no clear indication of potential for rehab. Based on those notes they have denied auth for SNF/Rehab. Contacted [facility] Ovalles and requested faxed copies of PT eval which clearly indicates that patient had been independent living at home and demonstrates a high potential for rehab. Notes have been faxed to CORI Nielsen @ [place], FAX [phone]. Physician advisor indicated to Dr Mcnair that he may re-open case if PT notes support need for SNF/Rehab.
--- NOTE | 2017-01-24 12:50 | NUR ---
MD called Called Dr. Mcnair made MD aware of patient's increasing lethargic and of low blood pressure. Orders received for stat ammonia and consult with Dr. Cuevas. Will follow up.
--- NOTE | 2017-01-24 13:03 | NUR ---
Called Consult Called Dr. Cuevas for stat consult. Spoke with Madalyn crane MD's exchange. Currently waiting for a call back.
--- NOTE | 2017-01-24 14:15 | NUR ---
PHYSICAL THERAPY CO-SIGN The Physical Therapy Progress Notes documented by Sleeve Turner have been reviewed. Reviewed/Co-Signed by: Yessenia Park,PT Documentation Done by: Kt Hall PTA I concur with the documentation of this EMAIL ENGINEER. Plan: continue PT as per plan of care if he remains in this hospital. Addendum: 01/24/17 at 1520 by Yessenia Park PT Amended: Links added.
--- NOTE | 2017-01-24 16:23 | NUR ---
MADE A F/U CALL TO THE NEUROLOGIST, DR. GUERRA, RE: ALOC. SPOKE TO VICKIE
--- NOTE | 2017-01-24 16:45 | NUR ---
MD Rounds Dr. Villa rounded on the patient. ordered a stat CT of the head. also stated that if CT of the head is negative to insert NG tube. Will follow up.
--- NOTE | 2017-01-24 18:21 | NUR ---
Closing Note Patient is resting in bed. VS are within range at the moment. Waiting for CT head results to insert NG tube. IV is on the RFA 22g, saline locked. Will endorse care to the oncoming nurse.
--- NOTE | 2017-01-24 18:46 | NUR ---
RN Notes Patient is awake, alert, and eating dinner at the moment. Preliminary results of CT head received. Will not insert NG tube at the moment since patient is alert.
--- NOTE | 2017-01-24 19:21 | NUR ---
OPENING NOTE Patient is awake and sitting in bed eating dinner. Patient is awake and alert. Patient shows no signs of distress.
[2017-01-24] MEDS: traZODone HCL 50 MG TABLET (DESYREL) PO SCH (20:53)
--- NOTE | 2017-01-24 21:04 | NUR ---
Medication Scheduled medication given please see EMAR. Patient tolerated medication will.Patient is confused states worried going to be fired from his job. Reoriented back to reality but is still confused. Patient has safety precautions in place along with seizure precautions. Call light is with patient. Patient breathing is equal and non labored. no signs of distress. will continue to monitor.
--- NOTE | 2017-01-24 23:00 | NUR ---
RN rounding Patient appears to be resting with both eyes closed visible chest rise and fall no signs of distress breathing. Patient has safety precautions in place. Call light is with patient. side rails are padded. Will continue to monitor.
--- NOTE | 2017-01-25 01:30 | NUR ---
RN rounding Patient appears to be resting with both eys closed no signs of distress breathing is equal and non labored. Patient has safety along with seizure precautions in place. Will continue to monitor.
--- NOTE | 2017-01-25 02:33 | NUR ---
RN rounding Patient appears to be resting with both eyes closed visible chest rise and fall no signs of distress breathing is equal and non labored. Patient has safety precautions and seizure precautions in place. Call light is with patient. Will continue to monitor.
--- NOTE | 2017-01-25 03:34 | NUR ---
incontinence care incontinence care provided. Patient is awake and laying in bed. Patient is confused tried to reorientate back to reality but is still very confused. Patient has safety precautions in place. along with seizure precautions. Patient has call light with him. breathing is equal and non labored. will continue to monitor.
[2017-01-25 03:38] VITALS: BP 113/76; PULSE 67; RESP 20; TEMP 97.5; O2SAT 100
[2017-01-25] MEDS: MORPHINE 2 MG/ML INJ. SYRINGE IVP PRN (04:56)
--- NOTE | 2017-01-25 05:00 | NUR ---
pain medication Patient complains of pain 8/10 in abdomen medicated as order please see EMAR.Patients vital signs obtained prior to administration and are with in normal limits. Patient has safety precautions in place along with seizure precautions. Call light is with patient. educated to use for assistance.
[2017-01-25 06:35] LABS: BASOPHILS % (AUTO) 0.2 % (0.0-2.0); EOSINOPHILS # (AUTO) 0.5 K/uL (0.0-0.4); EOSINOPHILS % (AUTO) 4.4 % (0.0-4.0); HEMOGLOBIN 12.6 g/dL (14.0-18.0); LYMPHOCYTES # (AUTO) 1.1 K/uL (1.0-5.5); LYMPHOCYTES % (AUTO) 10.4 % (20.5-51.5); MEAN CORPUSCULAR HEMOGLOBIN 35 pg (27-31); MEAN CORPUSCULAR HGB CONC 33 % (32-36); MEAN CORPUSCULAR VOLUME 106 fL (79.0-98.0); MONOCYTES # (AUTO) 0.8 K/uL (0.0-1.0); MONOCYTES % (AUTO) 7.6 % (1.7-9.3); NEUTROPHILS # (AUTO) 8.4 K/uL (1.8-7.7); NEUTROPHILS % (AUTO) 77.4 % (40.0-70.0); PLATELET COUNT (AUTO) 121 K/uL (130-430); RED CELL DISTRIBUTION WIDTH 16.6 % (9.0-15.0); WHITE BLOOD COUNT (AUTO) 10.8 K/uL (4.8-10.8)
[2017-01-25 06:48] LABS: ALBUMIN 1.3 g/dL (3.4-4.8); CALCIUM 8.4 mg/dL (8.4-11.0); CREATININE 0.83 mg/dL (0.55-1.30); POTASSIUM 4.1 mmol/L (3.5-5.1); TOTAL BILIRUBIN 10.3 mg/dL (0.0-1.0)
--- NOTE | 2017-01-25 06:52 | NUR ---
RN closing note Patient is awake and sitting up in bed. Patient requesting a snack provided him with a pudding a milk and also some water. Patient shows no signs of distress breathing is equal and non labored. Patient has safety precautions in place. Call light is with patient. will endorse report to oncoming day nurse at bedside. Patient is stable at this time.
--- NOTE | 2017-01-25 08:00 | NUR ---
AM Initial Notes Pt aaox2 with confusion but more responsive and communicates well. No complaints of pain or discomfort. No sob, difficulty breathing or distress noted. Pt appears jaundiced in color. IV to right forearm #22g saline locked patent and flushing. Incontinent with urine and bowel. Hygiene and AM care done. Cleaned and kept dry. Repositioned and kept comfortable. Fall, safety and seizure precautions enforced with seizure pads on rails present. Will monitor.
[2017-01-25 08:09] VITALS: BP 129/93; PULSE 60; RESP 20; TEMP 97.8; O2SAT 99
--- NOTE | 2017-01-25 08:55 | NUR ---
Case mgt: Rec'd denial from Gia at for inpt medical necessity--Dr. Raji Mcnair unavailable to s/w [facility] today-He said Dr. Mcelroy is covering him. I will contact Dr. Mcelroy and make him aware of the denial and request him to call [facility] at [phone]. Ref#[id number]. Per nurse Moncho, pt's BP dropped yesterday and became lethargic. Today pt more awake and she is requesting PT to work with him early today. JOE GRAVES
[2017-01-25] MEDS: levETIRAcetam 500 MG TABLET PO SCH (09:39)
[2017-01-25] MEDS: FOLIC ACID 1 MG TABLET PO SCH (09:40)
[2017-01-25] MEDS: LACTULOSE 20 GM/30 ML UDC PO SCH ×2 (09:40→15:09)
[2017-01-25] MEDS: FUROSEMIDE 20 MG TABLET PO SCH (09:55)
[2017-01-25] MEDS: SPIRONOLACTONE 25 MG TABLET (ALDACTONE) PO SCH (09:56)
[2017-01-25] MEDS: THIAMINE HCL 100 MG TABLET PO SCH (09:57)
--- NOTE | 2017-01-25 10:00 | NUR ---
Physical Therapy Pt ambulating in hallway with therapist. No distress noted.
[2017-01-25] MEDS: PANTOPRAZOLE SODIUM 40 MG/VIAL (PROTONIX) IVP SCH (10:13)
[2017-01-25] MEDS: cefTRIAXone 1 GM in D5W 50 ML IV SCH (10:13)
[2017-01-25 10:37] VITALS: BP 108/62; PULSE 72
[2017-01-25] MEDS: PROPRANOLOL HCL 10 MG TABLET (INDERAL) PO SCH (10:40)
--- NOTE | 2017-01-25 10:40 | NUR ---
Held Inderal 0900 scheduled Inderal not administered due to blood pressure decreasing 108/68. Dr. Mcelroy made aware.
--- NOTE | 2017-01-25 11:00 | NUR ---
DC Planning: Met with dr. Bowers in [facility], made aware of the denial and request for SNF and to call [facility] Physician Advisor line #[phone] for MD to MD to discuss the denial and plan of care. Md will call cm/nurse unit back to update. Addendum: 01/25/17 at 1518 by Rebecca Salazar RN >> Per Maya, received call from [facility] Nielsen approved and given auth for pt. transferring to [facility] after consulting with dr. Bowers this am. -- Maya to arrange the discharge process.
--- NOTE | 2017-01-25 11:45 | NUR ---
Case mgt: Current PT notes faxed to Gia at -fax#[phone]---Per nurse and CM Rebecca and Dr. Bowers, pt is confused and needs frequent reorientation and inconsistent with following commands. Per Rebecca, Dr. Bowers made aware of the denial and request for SNF, and he will call the MD to MD ph# for [facility] to discuss the denial and plan of care. JOE GRAVES
[2017-01-25 12:11] VITALS: BP 95/67; PULSE 71; RESP 20; TEMP 98.3; O2SAT 96
--- NOTE | 2017-01-25 12:30 | NUR ---
Rounds Pt eating lunch. No significant changes noted. Repositioned and kept comfortable. Will monitor.
--- NOTE | 2017-01-25 14:30 | NUR ---
[facility] Spoke with Nicole at [facility] patient assigned to room 213D RN to report [phone] bed available anytime. STAR Fan made aware. Called [facility] [phone] arranged S transport picker / packer 6pm. Placed transportation packet in nurses station. Addendum: 01/25/17 at 1521 by Jennifer Richardson DP called and spoke with patient sister Kelley [phone] who is agreeable with patient discharge back to SNF today.
--- NOTE | 2017-01-25 14:52 | NUR ---
Rounds Pt awake with confusion and forgetfulness but calm and cooperative. No complaints of pain or discomfort. No distress noted. Incontinent care done for urine and bowel movement. Repositioned and kept dry and comfortable. Will continue to monitor. Encouraged to call for assistance.
[2017-01-25 16:12] VITALS: BP 113/71; PULSE 74; RESP 20; TEMP 97.8; O2SAT 95
--- NOTE | 2017-01-25 16:16 | NUR ---
PAGED DR VAUGHN WHO IS CAPACITOR PACK PRESS OPERATOR FOR DR AL. ITS REGARDING ORDERS. SPOKE WITH ANKITA
[2017-01-25] MEDS ORDERED: LACT10SO66 PO (16:25)
[2017-01-25] MEDS ORDERED: PROP10TA10 PO (16:25)
--- NOTE | 2017-01-25 16:39 | NUR ---
Rounds Pt awake with confusion but calm and cooperative. No significant changes noted. Incontinent care done. Repositioned and kept comfortable. Encouraged to call for assistance.
--- NOTE | 2017-01-25 17:30 | NUR ---
eKlley Nichols Called Kelley Nichols, sister of patient to inform that patient is going to be transferred tonight to [facility]. Sister acknowledges transfer.
--- NOTE | 2017-01-25 17:35 | NUR ---
Beatris Pate Called Beatris Pate @ to give report. Spoke with STAR Kahn. Patient will be going to room 213D.
[2017-01-25 17:54] VITALS: BP 113/71; PULSE 74; RESP 20; TEMP 97.8; O2SAT 95
--- NOTE | 2017-01-25 19:10 | NUR ---
Discharge Discharge patient with [facility] EMT. Transitional care instructions and packet given to EMT. Vital signs stable. Pt will be leaving with IV to right forearm #22g saline lock. Pt left floor via stretcher to ambulance vehicle. No distress noted.
== END 2017-01-25 19:10 | DRG 441 ==
LOC: SED 11:09 → SMU 12:52
PROVIDERS: ADMIT General Practice; ATTEND General Practice
PROC: 06L34CZ Occlusion of Esophageal Vein with Extraluminal Device, Percutaneous Endoscopic Approach (ICD-10-PCS; principal; 2017-01-18 08:00)
PROC: 0W9G3ZZ Drainage of Peritoneal Cavity, Percutaneous Approach (ICD-10-PCS; 2017-01-19)
DX: K72.90 Hepatic failure, unspecified without coma (principal); I85.01 Esophageal varices with bleeding; E43 Unspecified severe protein-calorie malnutrition; D68.9 Coagulation defect, unspecified; R65.10 Systemic inflammatory response syndrome (SIRS) of non-infectious origin without acute organ dysfunction; B18.2 Chronic viral hepatitis C; K70.31 Alcoholic cirrhosis of liver with ascites; K31.89 Other diseases of stomach and duodenum; Z79.52 Long term (current) use of systemic steroids; Z66 Do not resuscitate; F32.9 Major depressive disorder, single episode, unspecified; Z79.899 Other long term (current) drug therapy; Z68.33 Body mass index [BMI] 33.0-33.9, adult
CPT/HCPCS: 36415; 43244; 49083; 70450-TC; 71010; 76700-TC; 80048; 80053; 80076; 81000-TC; 82105; 82140-TC; 82947-TC; 83605; 83735-TC; 84157-TC; 84484; 85025; 85610-TC; 85730-TC; 87040-TC; 87070-TC; 87081; 88108; 89051-TC; 89060-TC; 93005; 96365; 97110-GP; 97116-GP; 97530-GP; 99285; C1729; C9113; J0696; J2060; J2250; J2270; J2354; J2543; J3010; J3475; J7040; J7050; J7060; Q2037